=== PATIENT | female | born 1940 | race Caucasian/White ===

== ENCOUNTER 2018-05-28 12:53 | Emergency (ER) | payer MEDICARE, MEDICAID, OTHER ==
[2018-05-28 14:14] LABS: BASO # 0.1 10^3/uL (0.0-0.2); BASO % 0.4 % (0.0-1.0); EOS # 0.3 10^3/uL (0.0-0.50); EOS % 2.1 % (0.0-3.0); HEMATOCRIT 42.2 % (36.0-47.0); HEMOGLOBIN 13.4 g/dl (12.0-15.5); IMMATURE GRANULOCYTE % 0.4 % (0-3.0); LYMPH # 1.8 10^3/uL (1.5-4.5); LYMPH % 15.1 % (24.0-44.0); MEAN CORPUSCULAR HEMOGLOBIN 30.7 pg (27.0-33.0); MEAN CORPUSCULAR HGB CONC 31.8 g/dl (32.0-36.5); MEAN CORPUSCULAR VOLUME 96.6 fl (80.0-96.0); MONO # 0.8 10^3/uL (0.0-0.8); MONO % 6.6 % (0.0-5.0); NEUTROPHILS % 75.4 % (36.0-66.0); PLATELET COUNT, AUTOMATED 361 10^3/uL (150-450); RED BLOOD COUNT 4.37 10^6/uL (4.00-5.40); RED CELL DISTRIBUTION WIDTH 13.5 % (11.5-14.5); WHITE BLOOD COUNT 11.9 10^3/uL (4.0-10.0)
[2018-05-28 14:18] LABS: LACTIC ACID SEPSIS PROTOCOL 1.1 MMOL/L (0.4-2.0)
[2018-05-28 14:20] LABS: ALBUMIN 3.1 GM/DL (3.2-5.2); ALBUMIN/GLOBULIN RATIO 0.67 (1.00-1.93); ALKALINE PHOSPHATASE 116 U/L (45-117); ALT/SGPT 23 U/L (12-78); ANION GAP 7 MEQ/L (8-16); AST/SGOT 17 U/L (7-37); BILIRUBIN,DIRECT 0.2 MG/DL (0.0-0.2); BILIRUBIN,TOTAL 0.7 MG/DL (0.2-1.0); BLOOD UREA NITROGEN 18 MG/DL (7-18); CALCIUM LEVEL 9.1 MG/DL (8.8-10.2); CARBON DIOXIDE LEVEL 27 MEQ/L (21-32); CHLORIDE LEVEL 107 MEQ/L (98-107); CPK CREATINE PHOSPHOKINASE 32 U/L (26-192); CREATININE FOR GFR 0.85 MG/DL (0.55-1.30); GLOMERULAR FILTRATION RATE > 60.0 (>39); GLUCOSE, FASTING 79 MG/DL (70-100); POTASSIUM SERUM 3.8 MEQ/L (3.5-5.1); SODIUM LEVEL 141 MEQ/L (136-145); TOTAL PROTEIN 7.7 GM/DL (6.4-8.2); TROPONIN I < 0.02 NG/ML (< 0.10)
[2018-05-28] MEDS: IPRATROPIUM 0.5MG/ALBUTEROL 2.5MG INH SOL UD 3ML (DUONEB)(J7620) NEB ×2 (14:24→15:36)
[2018-05-28 14:26] LABS: CK-MB VALUE MASS < 1.0 NG/ML (<3.6); MB/CK RELATIVE INDEX 3.12 (< OR =4); NT-PRO BNP 347 PG/ML (<450)
[2018-05-28] MEDS: methylPREDNISolone INJ 125 MG/2 ML VIAL (J2930) IV (15:20)
== END 2018-05-28 16:08 | disposition home or self-care (01) ==
LOC: M ED 12:53
DX: J44.1 Chronic obstructive pulmonary disease with (acute) exacerbation (principal); M06.9 Rheumatoid arthritis, unspecified; I08.9 Rheumatic multiple valve disease, unspecified; Z88.0 Allergy status to penicillin; Z87.891 Personal history of nicotine dependence
CPT/HCPCS: J2930

== ENCOUNTER → 2018-08-08 | Outpatient (CLI) | payer MEDICARE, MEDICAID | LOC: M RAD 13:06 | DX: M51.36 Other intervertebral disc degeneration, lumbar region (principal) | CPT/HCPCS: 72148 ==

== ENCOUNTER → 2018-09-12 | Outpatient (CLI) | payer MEDICARE, MEDICAID | LOC: M LRY 12:11 | DX: M15.0 Primary generalized (osteo)arthritis (principal) | CPT/HCPCS: 73130; 82607 ==

== ENCOUNTER → 2018-09-12 | Outpatient (REF) | payer MEDICARE, MEDICAID ==
[2018-09-12 19:41] LABS: BASO % 0.4 % (0.0-1.0); EOS # 0.3 10^3/uL (0.0-0.50); EOS % 2.8 % (0.0-3.0); HEMATOCRIT 42.1 % (36.0-47.0); HEMOGLOBIN 13.5 g/dl (12.0-15.5); IMMATURE GRANULOCYTE % 0.2 % (0-3.0); LYMPH # 1.4 10^3/uL (1.5-4.5); LYMPH % 16.2 % (24.0-44.0); MEAN CORPUSCULAR HEMOGLOBIN 30.6 pg (27.0-33.0); MEAN CORPUSCULAR HGB CONC 32.1 g/dl (32.0-36.5); MEAN CORPUSCULAR VOLUME 95.5 fl (80.0-96.0); MONO # 0.7 10^3/uL (0.0-0.8); MONO % 7.5 % (0.0-5.0); NEUTROPHILS # 6.5 10^3/uL (1.8-7.7); NEUTROPHILS % 72.9 % (36.0-66.0); PLATELET COUNT, AUTOMATED 305 10^3/uL (150-450); RED BLOOD COUNT 4.41 10^6/uL (4.00-5.40); RED CELL DISTRIBUTION WIDTH 13.4 % (11.5-14.5); WHITE BLOOD COUNT 8.9 10^3/uL (4.0-10.0)
[2018-09-12 20:06] LABS: ALBUMIN 3.6 GM/DL (3.2-5.2); ALBUMIN/GLOBULIN RATIO 1.24 (1.00-1.93); ALKALINE PHOSPHATASE 105 U/L (45-117); ALT/SGPT 18 U/L (12-78); ANION GAP 8 MEQ/L (8-16); AST/SGOT 17 U/L (7-37); BILIRUBIN,TOTAL 0.4 MG/DL (0.2-1.0); BLOOD UREA NITROGEN 17 MG/DL (7-18); C REACTIVE PROTEIN QUANTITATIV 0.66 MG/DL (0.00-0.30); CARBON DIOXIDE LEVEL 30 MEQ/L (21-32); CHLORIDE LEVEL 104 MEQ/L (98-107); CREATININE FOR GFR 0.81 MG/DL (0.55-1.30); GLOMERULAR FILTRATION RATE > 60.0 (>39); GLUCOSE, FASTING 67 MG/DL (70-100); RHEUMATOID FACTOR QUANT < 10.0 IU/ML (<15.0); SODIUM LEVEL 142 MEQ/L (136-145); TOTAL PROTEIN 6.5 GM/DL (6.4-8.2)
[2018-09-12 20:27] LABS: ERYTHROCYTE SEDIMENTATION RATE 9 mm/hr (0-30)
== END ==
LOC: M SFHCLERA 12:09
DX: M06.9 Rheumatoid arthritis, unspecified (principal)
CPT/HCPCS: 82607

== ENCOUNTER → 2018-10-24 | Outpatient (REF) | payer MEDICARE, MEDICAID ==
[~2018-10-24] MED LIST: /FENT75PA; ALEN70TA57 PO; AMLO2.5T2 PO; ASPI81CH32 PO; ATOR1TAB21 PO; AZIT500T2 PO; B-12100T2 PO; CEFD1CAP8; D32000CA PO; FLEXERIL; FOLI1TAB; FOLI800C PO; HYDR-3713; LASI20TA PO; METH2.5T; METH2.5T48 PO; NEUR100C PO; NEUR300C; PAXI40TA; POTA1TAB14 PO; PRED10TA2 PO; PREMPRO; TESS100C PO; TRAZ-163 PO; VENL150C43; VENTAER INH; VICODINES TAB; ZOFR4TAB14 PO; [UNRECOGNIZED DRUG - OTHER]
[2018-10-24 15:44] LABS: BASO % 0.5 % (0.0-1.0); EOS # 0.3 10^3/uL (0.0-0.50); EOS % 3.5 % (0.0-3.0); HEMATOCRIT 40.6 % (36.0-47.0); HEMOGLOBIN 13.1 g/dl (12.0-15.5); LYMPH # 1.3 10^3/uL (1.5-4.5); LYMPH % 15.7 % (24.0-44.0); MEAN CORPUSCULAR HEMOGLOBIN 30.8 pg (27.0-33.0); MEAN CORPUSCULAR HGB CONC 32.3 g/dl (32.0-36.5); MEAN CORPUSCULAR VOLUME 95.3 fl (80.0-96.0); MONO # 0.6 10^3/uL (0.0-0.8); MONO % 7.7 % (0.0-5.0); NEUTROPHILS % 72.1 % (36.0-66.0); PLATELET COUNT, AUTOMATED 319 10^3/uL (150-450); RED BLOOD COUNT 4.26 10^6/uL (4.00-5.40); WHITE BLOOD COUNT 8.3 10^3/uL (4.0-10.0)
[2018-10-24 16:06] LABS: ALBUMIN 3.9 GM/DL (3.2-5.2); ALT/SGPT 18 U/L (12-78); BILIRUBIN,TOTAL 0.5 MG/DL (0.2-1.0); BLOOD UREA NITROGEN 20 MG/DL (7-18); C REACTIVE PROTEIN QUANTITATIV 0.48 MG/DL (0.00-0.30); CALCIUM LEVEL 8.7 MG/DL (8.8-10.2); CARBON DIOXIDE LEVEL 28 MEQ/L (21-32); CHLORIDE LEVEL 106 MEQ/L (98-107); CREATININE FOR GFR 0.75 MG/DL (0.55-1.30); GLOMERULAR FILTRATION RATE > 60.0 (>39); GLUCOSE, FASTING 76 MG/DL (70-100); POTASSIUM SERUM 3.9 MEQ/L (3.5-5.1); SODIUM LEVEL 141 MEQ/L (136-145); TOTAL PROTEIN 6.9 GM/DL (6.4-8.2)
[2018-10-24 16:10] LABS: ERYTHROCYTE SEDIMENTATION RATE 17 mm/hr (0-30)
== END ==
LOC: M SFHCPLAZ 14:39
PROVIDERS: ATTEND Internal Medicine Rheumatology
DX: M06.9 Rheumatoid arthritis, unspecified (principal)
CPT/HCPCS: 36415; 80053; 85025; 85652; 86140; G0463

== ENCOUNTER → 2018-12-23 | Outpatient (REF) | payer MEDICARE, MEDICAID ==
[~2018-12-23] MED LIST changes: -AMLO2.5T2 PO; +AMLO2.5T3 PO; -LASI20TA PO; +LASI20TA3 PO
[2018-12-23 19:58] LABS: BASO # 0.1 10^3/uL (0.0-0.2); BASO % 0.6 % (0.0-1.0); EOS # 0.2 10^3/uL (0.0-0.50); EOS % 2.9 % (0.0-3.0); HEMATOCRIT 37.9 % (36.0-47.0); HEMOGLOBIN 11.9 g/dl (12.0-15.5); LYMPH # 1.4 10^3/uL (1.5-4.5); LYMPH % 17.5 % (24.0-44.0); MEAN CORPUSCULAR HEMOGLOBIN 31.2 pg (27.0-33.0); MEAN CORPUSCULAR HGB CONC 31.4 g/dl (32.0-36.5); MEAN CORPUSCULAR VOLUME 99.5 fl (80.0-96.0); MONO # 0.6 10^3/uL (0.0-0.8); MONO % 7.4 % (0.0-5.0); NEUTROPHILS # 5.8 10^3/uL (1.8-7.7); NEUTROPHILS % 71.4 % (36.0-66.0); PLATELET COUNT, AUTOMATED 308 10^3/uL (150-450); RED BLOOD COUNT 3.81 10^6/uL (4.00-5.40); WHITE BLOOD COUNT 8.2 10^3/uL (4.0-10.0)
[2018-12-23 20:01] LABS: ALBUMIN 3.7 GM/DL (3.2-5.2); ALT/SGPT 15 U/L (12-78); BILIRUBIN,TOTAL 0.4 MG/DL (0.2-1.0); BLOOD UREA NITROGEN 25 MG/DL (7-18); C REACTIVE PROTEIN QUANTITATIV < 0.30 MG/DL (0.00-0.30); CALCIUM LEVEL 8.9 MG/DL (8.8-10.2); CARBON DIOXIDE LEVEL 32 MEQ/L (21-32); CHLORIDE LEVEL 106 MEQ/L (98-107); GLOMERULAR FILTRATION RATE > 60.0 (>39); GLUCOSE, FASTING 64 MG/DL (70-100); POTASSIUM SERUM 4.2 MEQ/L (3.5-5.1); SODIUM LEVEL 141 MEQ/L (136-145); TOTAL PROTEIN 6.3 GM/DL (6.4-8.2)
[2018-12-23 20:29] LABS: ERYTHROCYTE SEDIMENTATION RATE 13 mm/hr (0-30)
[2018-12-25 08:59] LABS: HEPATITIS B SURFACE ANTIBODY NEGATIVE (POSITIVE)
[2018-12-25 09:10] LABS: HEPATITIS B SURFACE ANTIGEN NEGATIVE (NEGATIVE)
== END ==
LOC: M SFHCPLAZ 14:38
PROVIDERS: ATTEND Internal Medicine Rheumatology
DX: M06.9 Rheumatoid arthritis, unspecified (principal); M15.0 Primary generalized (osteo)arthritis; M81.0 Age-related osteoporosis without current pathological fracture; Z79.899 Other long term (current) drug therapy
CPT/HCPCS: 36415; 80053; 85025; 85652; 86140; 86480; 86704; 86706; 86803; 87340; G0463

== ENCOUNTER → 2020-06-01 | Outpatient (CLI) | payer MEDICARE, MEDICAID ==
[~2020-06-01] MED LIST changes: -/FENT75PA; -ALEN70TA57 PO; +ALEN70TA74 PO; -ASPI81CH32 PO; +ASPI81CH33 PO; -AZIT500T2 PO; +AZIT500T5 PO; +FENT1DIS16; -TRAZ-163 PO; +TRAZ-257 PO
--- NOTE | 2020-06-01 15:09 | REP ---
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 COMPARISONS: Comparison CT study of the chest are the radiology imaging January 22, 2019. TECHNIQUE: 50 minutes following the intravenous injection of a 8.4 mCi dose of F-18 FDG, three-dimensional PET scintigraphy is acquired from the skull base to the proximal thighs. Triplanar noncontrast CT scanning is acquired through the same anatomic range for attenuation correction, and image registration with scan parameters optimized to minimize radiation exposure to the patient. PET scintigraphy and CT datasets were fused and displayed on a workstation with multiplanar and projection display capability. PET/CT FINDINGS: There is no observable pulmonary parenchymal nodule or mass. 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 No abnormal hilar or mediastinal hypermetabolic activity is seen. Head and neck soft tissues are unremarkable. No abnormal hypermetabolic uptake in the abdomen or pelvis. There is a vertically oriented area of minimally increased uptake in the left sacrum consistent with healing sacral insufficiency fracture. Accompanying CT study shows some associated linear sclerosis. Incidental morphologic findings include bilateral breast augmentation implants and fairly prominent vascular calcification. IMPRESSION: No abnormal hypermetabolic uptake advanced COPD pulmonary fibrosis pattern. Findings consistent with healing sacral insufficiency fracture on the left. Electronically Signed by Frederick Owen MD 06/01/2020 03:18 P
== END ==
LOC: M PLARAD 09:56
PROVIDERS: ATTEND Nurse Practitioner Family
DX: J44.9 Chronic obstructive pulmonary disease, unspecified (principal); J84.10 Pulmonary fibrosis, unspecified; Z98.82 Breast implant status; Z79.899 Other long term (current) drug therapy; R91.8 Other nonspecific abnormal finding of lung field
CPT/HCPCS: 78815; A9552

== ENCOUNTER → 2021-03-18 | Outpatient (REF) | payer OTHER, MEDICAID ==
[~2021-03-18] MED LIST changes: -ALEN70TA74 PO; +ALEN70TA82 PO
[2021-03-18 16:45] LABS: BASO # 0.1 10^3/uL (0.0-0.2); BASO % 0.8 % (0.0-1.0); EOS # 0.3 10^3/uL (0.0-0.5); EOS % 2.8 % (0.0-3.0); HEMATOCRIT 49.1 % (36.0-47.0); HEMOGLOBIN 15.3 g/dl (12.0-15.5); LYMPH # 1.2 10^3/uL (1.5-5.0); LYMPH % 13.8 % (24.0-44.0); MEAN CORPUSCULAR HEMOGLOBIN 30.8 pg (27.0-33.0); MEAN CORPUSCULAR HGB CONC 31.2 g/dl (32.0-36.5); MEAN CORPUSCULAR VOLUME 98.8 fl (80.0-96.0); MONO # 0.9 10^3/uL (0.0-0.8); MONO % 9.9 % (2.0-8.0); NEUTROPHILS # 6.5 10^3/uL (1.5-8.5); NEUTROPHILS % 72.4 % (36.0-66.0); PLATELET COUNT, AUTOMATED 342 10^3/uL (150-450); RED BLOOD COUNT 4.97 10^6/uL (4.00-5.40)
[2021-03-18 17:10] LABS: ALBUMIN 4.1 GM/DL (3.2-5.2); ALT/SGPT 23 U/L (12-78); BILIRUBIN,DIRECT 0.2 MG/DL (0.0-0.2); BILIRUBIN,TOTAL 0.6 MG/DL (0.2-1.0); BLOOD UREA NITROGEN 21 MG/DL (7-18); C REACTIVE PROTEIN QUANTITATIV 0.93 MG/DL (0.00-0.30); CALCIUM LEVEL 9.6 MG/DL (8.8-10.2); CARBON DIOXIDE LEVEL 30 MEQ/L (21-32); CHLORIDE LEVEL 105 MEQ/L (98-107); CREATININE FOR GFR 0.88 MG/DL (0.55-1.30); GLOMERULAR FILTRATION RATE > 60.0 (>39); GLUCOSE, FASTING 80 MG/DL (70-100); IMMUNOGLOBULIN G 887 MG/DL (681-1648); IMMUNOGLOBULIN M 92.3 MG/DL (40-230); MAGNESIUM LEVEL 2.1 MG/DL (1.8-2.4); PHOSPHORUS LEVEL 3.4 MG/DL (2.5-4.9); POTASSIUM SERUM 3.6 MEQ/L (3.5-5.1); RHEUMATOID FACTOR QUANT 10.6 IU/ML (<15.0); SODIUM LEVEL 141 MEQ/L (136-145); TOTAL 25(OH) VITAMIN D 43.5 NG/ML (30.0-100.0); TOTAL PROTEIN 7.6 GM/DL (6.4-8.2)
[2021-03-18 18:31] LABS: ERYTHROCYTE SEDIMENTATION RATE 5 mm/hr (0-30)
[2021-03-21 13:57] LABS: ALBUMIN 4.39 GM/DL (3.29-5.55); ALBUMIN % 57.8 % (55.8-66.1); ALPHA-1-GLOBULIN % 4.9 % (2.9-4.9); ALPHA-1-GLOBULINS 0.37 GM/DL (0.17-0.41); ALPHA-2-GLOBULINS 1.09 GM/DL (0.42-0.99); ALPHA-2-GLOBULINS % 14.4 % (7.1-11.8); BETA-1-GLOBULINS 0.45 GM/DL (0.28-0.60); BETA-1-GLOBULINS % 5.9 % (4.7-7.2); BETA-2-GLOBULINS 0.45 GM/DL (0.19-0.55); BETA-2-GLOBULINS % 5.9 % (3.2-6.5); GAMMA GLOBULIN % 11.1 % (11.1-18.8); GAMMA GLOBULINS 0.84 GM/DL (0.65-1.58)
[2021-03-22 00:10] LABS: G6PD2 5.07 x10E6/uL (3.77-5.28)
== END ==
LOC: M SFHCRHEU 12:11
PROVIDERS: ATTEND Internal Medicine
DX: M06.09 Rheumatoid arthritis without rheumatoid factor, multiple sites (principal); M81.0 Age-related osteoporosis without current pathological fracture
CPT/HCPCS: 80048; 80076; 82306; 82784; 82955; 83735; 84100; 84165; 85025; 85652; 86140; 86200; 86431; G0463

== ENCOUNTER 2021-08-04 16:34 | Emergency (ER) | payer OTHER, MEDICAID ==
[~2021-08-04] VITALS: Ht 165.1 cm; Wt 50.9 kg
--- NOTE | 2021-08-04 17:41 | REP ---
INDICATION: DYSPNEA/COUGH. COMPARISON: 01/13/2019. TECHNIQUE: Single portable AP view of the chest was performed. FINDINGS: Bilateral fibrotic changes appear stable. There is no definite superimposed acute infiltrate. The heart is normal in size. There is calcification of the thoracic aorta. The mediastinal silhouette is unchanged. Metallic hardware is seen in the cervical spine. IMPRESSION: No definite acute infiltrate. Significant chronic fibrosis. <Electronically signed by Edmar Burnett > 08/04/21 [id number]
[2021-08-04 17:57] LABS: BASO % 0.3 % (0.0-1.0); EOS # 0.1 10^3/uL (0.0-0.5); EOS % 0.7 % (0.0-3.0); HEMATOCRIT 44.3 % (36.0-47.0); HEMOGLOBIN 14.1 g/dl (12.0-15.5); LYMPH % 8.1 % (24.0-44.0); MEAN CORPUSCULAR HEMOGLOBIN 30.8 pg (27.0-33.0); MEAN CORPUSCULAR HGB CONC 31.8 g/dl (32.0-36.5); MEAN CORPUSCULAR VOLUME 96.7 fl (80.0-96.0); MONO % 7.8 % (2.0-8.0); NEUTROPHILS # 10.4 10^3/uL (1.5-8.5); NEUTROPHILS % 82.7 % (36.0-66.0); PLATELET COUNT, AUTOMATED 254 10^3/uL (150-450); RED BLOOD COUNT 4.58 10^6/uL (4.00-5.40); WHITE BLOOD COUNT 12.5 10^3/uL (4.0-10.0)
[2021-08-04 18:20] LABS: ALBUMIN 3.1 GM/DL (3.2-5.2); ALT/SGPT 13 U/L (12-78); BILIRUBIN,DIRECT 0.3 MG/DL (0.0-0.2); BILIRUBIN,TOTAL 0.8 MG/DL (0.2-1.0); BLOOD UREA NITROGEN 16 MG/DL (7-18); CALCIUM LEVEL 8.7 MG/DL (8.8-10.2); CARBON DIOXIDE LEVEL 28 MEQ/L (21-32); CHLORIDE LEVEL 108 MEQ/L (98-107); CK-MB VALUE MASS < 1.0 NG/ML (<3.6); CPK CREATINE PHOSPHOKINASE 51 U/L (26-192); CREATININE FOR GFR 0.88 MG/DL (0.55-1.30); GLOMERULAR FILTRATION RATE > 60.0 (>39); GLUCOSE, FASTING 107 MG/DL (70-100); MB/CK RELATIVE INDEX 1.96 (< OR =4); NT-PRO BNP 343 PG/ML (<450); POTASSIUM SERUM 3.6 MEQ/L (3.5-5.1); SODIUM LEVEL 142 MEQ/L (136-145); THYROID STIMULATING HORMONE 0.685 uIU/ML (0.358-3.740); TOTAL PROTEIN 6.4 GM/DL (6.4-8.2); TROPONIN I 0.02 NG/ML (< 0.10)
[2021-08-04] MEDS ORDERED: ACETAMINOPHEN TAB 650MG DOSE (2X325MG) PO ONE (19:05)
[2021-08-04] MEDS ORDERED: methylPREDNISolone 125MG 2ML VIAL IV ONE (19:35)
[2021-08-04] MEDS ORDERED: LevoFLOXacin IV 750 MG in IV 1 EA IV ONE (19:35)
[2021-08-04] MEDS ORDERED: IPRATROPIUM 0.5MG/ALBUTEROL 2.5MG INH SOL UD 3ML (DUONEB) NEB ONE (19:50)
[2021-08-04 19:53] VITALS: BP 133/94
[2021-08-04] MEDS ORDERED: LEVO750T13 PO (20:45)
[2021-08-04] MEDS ORDERED: IPRA0.00 NEB (21:09)
[2021-08-04] MEDS ORDERED: PRED20TA PO (21:11)
--- NOTE | 2021-08-05 00:31 | ECGEPIP ---
[facility] - ED Test Date: 2021-08-04 Pat Name: JOSEP BOND Department: Room: - Gender: Female Chief Jailer: ALEXANDRA : 1940 Requested By: DESMOND Beyer Order Number: [id number] Reading MD: Hilario Osborne Measurements Intervals [place] Rate: 88 P: 71 AL: 130 QRS: 44 QRSD: 70 T: 76 QT: 450 QTc: 544 Interpretive Statements Sinus rhythm with supraventricular premature contractions INCOMPLETE RIGHT BUNDLE BRANCH BLOCK ECTOPY NEW COMPARED TO 11/12/18 Electronically Signed on 08-05-2021 0:31:18 EDT by Hilario Osborne
== END 2021-08-04 22:38 | disposition home or self-care (01) ==
LOC: M ED 16:34 → EDSEX 16:34 → EDBD 16:34 → M ED 22:38
DX: I45.19 Other right bundle-branch block (principal); J18.9 Pneumonia, unspecified organism; J44.9 Chronic obstructive pulmonary disease, unspecified; C34.90 Malignant neoplasm of unspecified part of unspecified bronchus or lung; I50.9 Heart failure, unspecified; I10 Essential (primary) hypertension; E78.5 Hyperlipidemia, unspecified; F32.9 Major depressive disorder, single episode, unspecified; M06.9 Rheumatoid arthritis, unspecified; M81.0 Age-related osteoporosis without current pathological fracture; Z79.82 Long term (current) use of aspirin; Z79.899 Other long term (current) drug therapy; Z88.1 Allergy status to other antibiotic agents; Z88.8 Allergy status to other drugs, medicaments and biological substances; Z91.040 Latex allergy status; Z88.6 Allergy status to analgesic agent; Z88.0 Allergy status to penicillin
CPT/HCPCS: 71045; 80048; 80076; 82550; 82553; 83605; 83880; 84443; 84484; 85025; 87040; 87798; 93005; 94640; 94760; 96365; 96375; 99284; J1956; J2930

== ENCOUNTER 2022-02-14 15:48 | Inpatient (IN) | payer OTHER, MEDICAID ==
[~2022-02-14] VITALS: Ht 165.1 cm; Wt 49.0 kg
[~2022-02-14 15:48] MED LIST changes: -CEFD1CAP8; +CEFD300C41; +IPRA0.00 NEB; +LEVO750T13 PO; +PRED20TA PO
[2022-02-14] MEDS ORDERED: NS 1,000 ML IV SCH (16:35)
[2022-02-14 17:19] LABS: BASO % 0.3 % (0.0-1.0); EOS # 0.1 10^3/uL (0.0-0.5); EOS % 0.6 % (0.0-3.0); HEMATOCRIT 40.1 % (36.0-47.0); HEMOGLOBIN 13.5 g/dl (12.0-15.5); LYMPH # 1.5 10^3/uL (1.5-5.0); LYMPH % 17.3 % (24.0-44.0); MEAN CORPUSCULAR HEMOGLOBIN 31.7 pg (27.0-33.0); MEAN CORPUSCULAR HGB CONC 33.7 g/dl (32.0-36.5); MEAN CORPUSCULAR VOLUME 94.1 fl (80.0-96.0); MONO # 1.2 10^3/uL (0.0-0.8); MONO % 13.6 % (2.0-8.0); NEUTROPHILS % 67.9 % (36.0-66.0); PLATELET COUNT, AUTOMATED 207 10^3/uL (150-450); RED BLOOD COUNT 4.26 10^6/uL (4.00-5.40); WHITE BLOOD COUNT 8.8 10^3/uL (4.0-10.0)
[2022-02-14] MEDS ORDERED: dexameTHASONE 4 MG/ML 1ML VIAL (J1100 PER 1MG) IV ONE (17:40)
[2022-02-14 17:56] LABS: ALBUMIN 3.2 GM/DL (3.2-5.2); ALT/SGPT 23 U/L (12-78); BILIRUBIN,DIRECT 0.3 MG/DL (0.0-0.2); BILIRUBIN,TOTAL 0.6 MG/DL (0.2-1.0); BLOOD UREA NITROGEN 22 MG/DL (7-18); CALCIUM LEVEL 9.1 MG/DL (8.8-10.2); CARBON DIOXIDE LEVEL 27 MEQ/L (21-32); CHLORIDE LEVEL 110 MEQ/L (98-107); CREATININE FOR GFR 0.94 MG/DL (0.55-1.30); GLOMERULAR FILTRATION RATE > 60.0 (>32); GLUCOSE, FASTING 81 MG/DL (70-100); NT-PRO BNP 238 PG/ML (<450); POTASSIUM SERUM 3.4 MEQ/L (3.5-5.1); SODIUM LEVEL 143 MEQ/L (136-145); THYROID STIMULATING HORMONE 0.381 uIU/ML (0.358-3.740); THYROXINE (T4) 10.6 UG/DL (4.5-12.0)
[2022-02-14] MEDS ORDERED: BENZONATATE 100MG CAPSULE PO PRN (18:25)
[2022-02-14] MEDS ORDERED: ALBUTEROL SULFATE 2.5 MG/0.5 ML INH NEB SOLN NEB PRN (18:25)
[2022-02-14] MEDS ORDERED: guaiFENesin ER 600 MG TAB PO PRN (18:25)
[2022-02-14 18:37] LABS: ABG HCO3 20.9 MEQ/L (22.0-26.0); ABG O2 SATURATION 94.8 % (95.0-99.0); ABG PARTIAL PRESSURE CO2 33.8 mmHg (35.0-45.0); ABG PARTIAL PRESSURE O2 72.1 mmHg (75.0-100.0); ABG STANDARD HCO3 21.9 MEQ/L (22.0-26.0); ABG TOTAL CO2 21.9 MEQ/L (23.0-31.0); ABG pH (ARTERIAL) 7.409 UNITS (7.350-7.450)
[2022-02-14] MEDS ORDERED: POTASSIUM CHLORIDE 10MEQ SR TABLET PO ONE (18:40)
[2022-02-14] MEDS ORDERED: APAP500T10 PO (18:49)
[2022-02-14] MEDS ORDERED: FAMO20TA PO (18:49)
[2022-02-14] MEDS ORDERED: AMLO1TAB24 PO (18:49)
[2022-02-14] MEDS ORDERED: IPRA0.00 NEB (18:49)
[2022-02-14] MEDS ORDERED: DULO1CAP4 PO (18:49)
[2022-02-14] MEDS ORDERED: HOME MED LIST COMPLETE! XX SCH (18:50)
[2022-02-14] MEDS: COMBIVENT RESPIMAT 100-20MCG INHALER 4GM INH SCH (20:19)
[2022-02-14 20:40] VITALS: BP 150/70
[2022-02-14] MEDS ORDERED: FAMOTIDINE 20 MG TAB PO PRN (21:15)
[2022-02-14 22:02] LABS: APPEARANCE, URINE CLEAR (CLEAR); BACTERIA, URINE AUTO 1+ (NEGATIVE); BILIRUBIN, URINE AUTO NEGATIVE (NEGATIVE); BLOOD, URINE BLOOD NEGATIVE (NEGATIVE); COLOR, URINE YELLOW (YELLOW); GLUCOSE, URINE (UA) AUTO NEGATIVE (NEGATIVE); KETONE, URINE AUTO 1+ mg/dL (NEGATIVE); LEUKOCYTE ESTERASE, URINE AUTO TRACE (NEGATIVE); MUCUS, URINE SMALL (NEGATIVE); NITRITE, URINE AUTO NEGATIVE (NEGATIVE); PROTEIN, URINE AUTO NEGATIVE (NEGATIVE); RBC, URINE AUTO 1 /HPF (0-3); SPECIFIC GRAVITY URINE AUTO 1.015 (1.002-1.035); SQUAMOUS EPITHELIAL CELL UR AU 1 /HPF (0-6); WBC, URINE AUTO 4 /HPF (0-3)
[2022-02-14 22:03] VITALS: O2SAT 93
[2022-02-14] MEDS: traZODone 100 MG TAB PO SCH (22:25)
[2022-02-14] MEDS ORDERED: REMDESIVIR 200 MG in NS 250 ML IV ONE (23:00)
[2022-02-15] MEDS: COMBIVENT RESPIMAT 100-20MCG INHALER 4GM INH SCH ×4 (01:00→20:29)
[2022-02-15] MEDS ORDERED: SODIUM CHLORIDE 0.9% INJ 10 ML SYR IV ONE (01:00)
[2022-02-15 02:21] VITALS: O2SAT 94
[2022-02-15 04:19] VITALS: O2SAT 95
[2022-02-15 06:13] VITALS: BP 107/60
[2022-02-15 08:35] LABS: HEMOGLOBIN 13.4 g/dl (12.0-15.5); LYMPH # 0.7 10^3/uL (1.5-5.0); LYMPH % 12.8 % (24.0-44.0); MEAN CORPUSCULAR HEMOGLOBIN 31.2 pg (27.0-33.0); MEAN CORPUSCULAR HGB CONC 32.7 g/dl (32.0-36.5); MEAN CORPUSCULAR VOLUME 95.3 fl (80.0-96.0); MONO # 0.3 10^3/uL (0.0-0.8); MONO % 5.6 % (2.0-8.0); NEUTROPHILS # 4.4 10^3/uL (1.5-8.5); NEUTROPHILS % 81.2 % (36.0-66.0); PLATELET COUNT, AUTOMATED 218 10^3/uL (150-450); WHITE BLOOD COUNT 5.4 10^3/uL (4.0-10.0)
[2022-02-15] MEDS: ENOXAPARIN 40MG/0.4ML SYRINGE (J1650 PER 10MG) SC SCH (08:36)
[2022-02-15] MEDS: DULoxetine 20 MG CAP (CYMBALTA) PO SCH (08:36)
[2022-02-15] MEDS: ATORVASTATIN 20 MG TAB PO SCH (08:37)
[2022-02-15] MEDS: amLODIPine 5 MG TAB PO SCH (08:39)
[2022-02-15 09:08] LABS: ALT/SGPT 25 U/L (12-78); BILIRUBIN,DIRECT 0.2 MG/DL (0.0-0.2); BILIRUBIN,TOTAL 0.4 MG/DL (0.2-1.0); BLOOD UREA NITROGEN 19 MG/DL (7-18); CALCIUM LEVEL 8.6 MG/DL (8.8-10.2); CARBON DIOXIDE LEVEL 27 MEQ/L (21-32); CHLORIDE LEVEL 113 MEQ/L (98-107); CREATININE FOR GFR 0.75 MG/DL (0.55-1.30); GLOMERULAR FILTRATION RATE > 60.0 (>32); GLUCOSE, FASTING 131 MG/DL (70-100); MAGNESIUM LEVEL 1.8 MG/DL (1.8-2.4); POTASSIUM SERUM 4.2 MEQ/L (3.5-5.1); SODIUM LEVEL 144 MEQ/L (136-145); TOTAL PROTEIN 5.9 GM/DL (6.4-8.2)
[2022-02-15] MEDS: dexameTHASONE 4 MG/ML 1ML VIAL (J1100 PER 1MG) IV SCH (11:10)
[2022-02-15 11:30] VITALS: O2SAT 94
[2022-02-15 14:00] VITALS: BP 125/59
[2022-02-15] MEDS ORDERED: traZODone 100 MG TAB PO SCH (21:00)
[2022-02-15 21:49] VITALS: BP 131/62
[2022-02-15] MEDS: SODIUM CHLORIDE 0.9% INJ 10 ML SYR IV SCH (21:53)
[2022-02-15] MEDS: REMDESIVIR 100 MG in NS 250 ML IV SCH (21:53)
[2022-02-15] MEDS: traZODone 100 MG TAB PO SCH (21:53)
[2022-02-16] MEDS: COMBIVENT RESPIMAT 100-20MCG INHALER 4GM INH SCH ×4 (02:00→19:39)
[2022-02-16 04:16] VITALS: BP 156/70
[2022-02-16 07:35] LABS: BASO % 0.1 % (0.0-1.0); HEMOGLOBIN 12.4 g/dl (12.0-15.5); LYMPH # 0.9 10^3/uL (1.5-5.0); LYMPH % 9.9 % (24.0-44.0); MEAN CORPUSCULAR HEMOGLOBIN 31.2 pg (27.0-33.0); MEAN CORPUSCULAR HGB CONC 32.6 g/dl (32.0-36.5); MEAN CORPUSCULAR VOLUME 95.7 fl (80.0-96.0); MONO # 0.7 10^3/uL (0.0-0.8); MONO % 7.7 % (2.0-8.0); NEUTROPHILS # 7.4 10^3/uL (1.5-8.5); NEUTROPHILS % 81.7 % (36.0-66.0); PLATELET COUNT, AUTOMATED 211 10^3/uL (150-450); RED BLOOD COUNT 3.97 10^6/uL (4.00-5.40); WHITE BLOOD COUNT 9.1 10^3/uL (4.0-10.0)
[2022-02-16 07:51] LABS: INR 1.04
[2022-02-16 07:56] LABS: ALBUMIN 2.7 GM/DL (3.2-5.2); ALT/SGPT 21 U/L (12-78); BILIRUBIN,DIRECT 0.1 MG/DL (0.0-0.2); BILIRUBIN,TOTAL 0.2 MG/DL (0.2-1.0); BLOOD UREA NITROGEN 22 MG/DL (7-18); CALCIUM LEVEL 8.3 MG/DL (8.8-10.2); CARBON DIOXIDE LEVEL 26 MEQ/L (21-32); CHLORIDE LEVEL 115 MEQ/L (98-107); CREATININE FOR GFR 0.73 MG/DL (0.55-1.30); FERRITIN 220 NG/ML (8-252); GLOMERULAR FILTRATION RATE > 60.0 (>32); GLUCOSE, FASTING 101 MG/DL (70-100); LDH LACTATE DEHYDROGENASE 162 U/L (84-246); MAGNESIUM LEVEL 1.8 MG/DL (1.8-2.4); NT-PRO BNP 1045 PG/ML (<450); POTASSIUM SERUM 3.9 MEQ/L (3.5-5.1); SODIUM LEVEL 146 MEQ/L (136-145); TOTAL PROTEIN 5.7 GM/DL (6.4-8.2)
[2022-02-16] MEDS ORDERED: ceFAZolin SOD 1 GM in D5W MINI-BAG PLUS 50 ML IV SCH (08:00)
[2022-02-16] MEDS: dexameTHASONE 4 MG/ML 1ML VIAL (J1100 PER 1MG) IV SCH (09:16)
[2022-02-16] MEDS: DULoxetine 20 MG CAP (CYMBALTA) PO SCH (09:16)
[2022-02-16] MEDS: ATORVASTATIN 20 MG TAB PO SCH (09:17)
[2022-02-16] MEDS: ENOXAPARIN 40MG/0.4ML SYRINGE (J1650 PER 10MG) SC SCH (09:20)
[2022-02-16] MEDS: amLODIPine 5 MG TAB PO SCH (09:20)
[2022-02-16 14:00] VITALS: BP 132/63
[2022-02-16 19:44] VITALS: BP 141/69
[2022-02-16 20:19] VITALS: O2SAT 95
[2022-02-16] MEDS ORDERED: CALCIUM CARBONATE 500 MG CHEW U/D PO PRN (21:05)
[2022-02-16] MEDS: traZODone 100 MG TAB PO SCH (22:29)
[2022-02-16] MEDS: REMDESIVIR 100 MG in NS 250 ML IV SCH (22:29)
[2022-02-16] MEDS: SODIUM CHLORIDE 0.9% INJ 10 ML SYR IV SCH (22:29)
[2022-02-17] MEDS: COMBIVENT RESPIMAT 100-20MCG INHALER 4GM INH SCH ×2 (02:00→07:34)
[2022-02-17 03:39] VITALS: O2SAT 95
[2022-02-17 05:21] VITALS: BP 138/66
[2022-02-17 08:31] LABS: BASO % 0.1 % (0.0-1.0); HEMATOCRIT 38.8 % (36.0-47.0); HEMOGLOBIN 12.9 g/dl (12.0-15.5); LYMPH # 1.2 10^3/uL (1.5-5.0); LYMPH % 12.8 % (24.0-44.0); MEAN CORPUSCULAR HEMOGLOBIN 31.3 pg (27.0-33.0); MEAN CORPUSCULAR HGB CONC 33.2 g/dl (32.0-36.5); MEAN CORPUSCULAR VOLUME 94.2 fl (80.0-96.0); MONO # 0.7 10^3/uL (0.0-0.8); MONO % 7.4 % (2.0-8.0); NEUTROPHILS # 7.5 10^3/uL (1.5-8.5); NEUTROPHILS % 78.9 % (36.0-66.0); PLATELET COUNT, AUTOMATED 250 10^3/uL (150-450); RED BLOOD COUNT 4.12 10^6/uL (4.00-5.40); WHITE BLOOD COUNT 9.5 10^3/uL (4.0-10.0)
[2022-02-17] MEDS: ENOXAPARIN 40MG/0.4ML SYRINGE (J1650 PER 10MG) SC SCH (09:00)
[2022-02-17] MEDS: dexameTHASONE 4 MG/ML 1ML VIAL (J1100 PER 1MG) IV SCH (09:00)
[2022-02-17 09:06] LABS: BLOOD UREA NITROGEN 24 MG/DL (7-18); CALCIUM LEVEL 8.3 MG/DL (8.8-10.2); CARBON DIOXIDE LEVEL 28 MEQ/L (21-32); CHLORIDE LEVEL 110 MEQ/L (98-107); CREATININE FOR GFR 0.74 MG/DL (0.55-1.30); GLOMERULAR FILTRATION RATE > 60.0 (>32); GLUCOSE, FASTING 85 MG/DL (70-100); MAGNESIUM LEVEL 1.7 MG/DL (1.8-2.4); POTASSIUM SERUM 3.7 MEQ/L (3.5-5.1); SODIUM LEVEL 143 MEQ/L (136-145)
[2022-02-17 09:40] VITALS: BP 138/66
[2022-02-17] MEDS: amLODIPine 5 MG TAB PO SCH (09:40)
[2022-02-17] MEDS: ATORVASTATIN 20 MG TAB PO SCH (09:40)
[2022-02-17] MEDS: DULoxetine 20 MG CAP (CYMBALTA) PO SCH (09:41)
== END 2022-02-17 12:10 | disposition home health service (06) | DRG 178 ==
LOC: EDBD 15:48 → M ED 15:48 → M ED INP 15:49 → ENRESERV 19:13 → M 4MAIN 20:32 → M MS5PR 02-16 15:00 → OBSVTOIN 02-17 09:50
PROVIDERS: ADMIT Family Medicine; ATTEND Family Medicine
PROC: XW033E5 Introduction of Remdesivir Anti-infective into Peripheral Vein, Percutaneous Approach, New Technology Group 5 (ICD-10-PCS; principal; 2022-02-14)
PROC: 3E0333Z Introduction of Anti-inflammatory into Peripheral Vein, Percutaneous Approach (ICD-10-PCS; 2022-02-14)
DX: U07.1 COVID-19 (principal); J44.1 Chronic obstructive pulmonary disease with (acute) exacerbation; E87.0 Hyperosmolality and hypernatremia; I10 Essential (primary) hypertension; E78.5 Hyperlipidemia, unspecified; K21.9 Gastro-esophageal reflux disease without esophagitis; M54.9 Dorsalgia, unspecified; F32.A Depression, unspecified; M81.0 Age-related osteoporosis without current pathological fracture; Z66 Do not resuscitate; Z88.0 Allergy status to penicillin; Z88.1 Allergy status to other antibiotic agents; Z91.040 Latex allergy status; Z92.3 Personal history of irradiation; Z88.8 Allergy status to other drugs, medicaments and biological substances; Z88.6 Allergy status to analgesic agent; Z85.118 Personal history of other malignant neoplasm of bronchus and lung; Z90.49 Acquired absence of other specified parts of digestive tract; Z79.899 Other long term (current) drug therapy; Z87.891 Personal history of nicotine dependence

== ENCOUNTER 2022-03-14 12:58 | Inpatient (IN) | payer OTHER, MEDICAID ==
[~2022-03-14] VITALS: Ht 165.1 cm; Wt 47.2 kg
[~2022-03-14 12:58] MED LIST changes: +AMLO1TAB24 PO; +APAP500T10 PO; +DULO1CAP4 PO; +FAMO20TA PO
[2022-03-14 14:52] LABS: BASO % 0.3 % (0.0-1.0); EOS % 0.3 % (0.0-3.0); LYMPH # 0.6 10^3/uL (1.5-5.0); LYMPH % 10.3 % (24.0-44.0); MEAN CORPUSCULAR HEMOGLOBIN 31.6 pg (27.0-33.0); MEAN CORPUSCULAR HGB CONC 32.5 g/dl (32.0-36.5); MEAN CORPUSCULAR VOLUME 97.1 fl (80.0-96.0); MONO # 0.3 10^3/uL (0.0-0.8); MONO % 5.5 % (2.0-8.0); NEUTROPHILS # 5.2 10^3/uL (1.5-8.5); NEUTROPHILS % 83.1 % (36.0-66.0); PLATELET COUNT, AUTOMATED 312 10^3/uL (150-450); RED BLOOD COUNT 4.12 10^6/uL (4.00-5.40); WHITE BLOOD COUNT 6.2 10^3/uL (4.0-10.0)
[2022-03-14 15:21] LABS: ALBUMIN 3.3 GM/DL (3.2-5.2); ALT/SGPT 15 U/L (12-78); AMYLASE 53 U/L (25-115); BILIRUBIN,DIRECT 0.2 MG/DL (0.0-0.2); BILIRUBIN,TOTAL 0.7 MG/DL (0.2-1.0); BLOOD UREA NITROGEN 24 MG/DL (7-18); CALCIUM LEVEL 9.3 MG/DL (8.8-10.2); CARBON DIOXIDE LEVEL 28 MEQ/L (21-32); CHLORIDE LEVEL 104 MEQ/L (98-107); CK-MB VALUE MASS < 1.0 NG/ML (<3.6); CPK CREATINE PHOSPHOKINASE 37 U/L (26-192); CREATININE FOR GFR 0.81 MG/DL (0.55-1.30); GLOMERULAR FILTRATION RATE > 60.0 (>32); GLUCOSE, FASTING 82 MG/DL (70-100); LIPASE 92 U/L (73-393); POTASSIUM SERUM 3.7 MEQ/L (3.5-5.1); SODIUM LEVEL 140 MEQ/L (136-145); TOTAL PROTEIN 6.1 GM/DL (6.4-8.2)
[2022-03-14] MEDS ORDERED: ISOVUE-370 76% 100ML VIAL As Ordered ONE (16:10)
[2022-03-14] MEDS ORDERED: ACETAMINOPHEN TAB 650MG DOSE (2X325MG) PO PRN (18:35)
[2022-03-14] MEDS ORDERED: IPRATROPIUM 0.5MG/ALBUTEROL 2.5MG INH SOL UD 3ML (DUONEB) NEB PRN (18:45)
[2022-03-14] MEDS ORDERED: VITA500T40 PO (20:41)
[2022-03-14] MEDS ORDERED: VITA100093 PO (20:41)
[2022-03-14] MEDS ORDERED: HOME MED LIST COMPLETE! XX SCH (20:45)
[2022-03-14] MEDS ORDERED: traZODone 100 MG TAB PO SCH (21:00)
[2022-03-14] MEDS: NS 1,000 ML IV SCH (21:55)
[2022-03-14 22:02] VITALS: BP 140/65
[2022-03-15] MEDS ORDERED: LevoFLOXacin 500 MG TABLET PO ONE (02:00)
[2022-03-15 04:00] VITALS: BP 118/55
[2022-03-15] MEDS: NS 1,000 ML IV SCH (04:39)
[2022-03-15 06:16] LABS: BASO % 0.7 % (0.0-1.0); EOS # 0.1 10^3/uL (0.0-0.5); EOS % 2.2 % (0.0-3.0); HEMATOCRIT 38.9 % (36.0-47.0); HEMOGLOBIN 12.6 g/dl (12.0-15.5); LYMPH # 1.2 10^3/uL (1.5-5.0); LYMPH % 25.2 % (24.0-44.0); MEAN CORPUSCULAR HEMOGLOBIN 31.6 pg (27.0-33.0); MEAN CORPUSCULAR HGB CONC 32.4 g/dl (32.0-36.5); MEAN CORPUSCULAR VOLUME 97.5 fl (80.0-96.0); MONO # 0.6 10^3/uL (0.0-0.8); MONO % 13.3 % (2.0-8.0); NEUTROPHILS # 2.7 10^3/uL (1.5-8.5); NEUTROPHILS % 58.4 % (36.0-66.0); PLATELET COUNT, AUTOMATED 291 10^3/uL (150-450); RED BLOOD COUNT 3.99 10^6/uL (4.00-5.40); WHITE BLOOD COUNT 4.6 10^3/uL (4.0-10.0)
[2022-03-15 06:40] VITALS: BP 118/59
[2022-03-15 06:41] LABS: BLOOD UREA NITROGEN 15 MG/DL (7-18); CALCIUM LEVEL 8.6 MG/DL (8.8-10.2); CARBON DIOXIDE LEVEL 27 MEQ/L (21-32); CHLORIDE LEVEL 107 MEQ/L (98-107); CREATININE FOR GFR 0.72 MG/DL (0.55-1.30); GLOMERULAR FILTRATION RATE > 60.0 (>32); GLUCOSE, FASTING 61 MG/DL (70-100); MAGNESIUM LEVEL 1.8 MG/DL (1.8-2.4); POTASSIUM SERUM 3.5 MEQ/L (3.5-5.1); SODIUM LEVEL 141 MEQ/L (136-145)
[2022-03-15] MEDS ORDERED: DEXTROSE 50% 50 ML SYRINGE IV STA (06:50)
[2022-03-15] MEDS ORDERED: DEXTROSE 50% 50 ML SYRINGE As Ordered ONE (06:52)
[2022-03-15] MEDS: ONDANSETRON 4MG/2ML VIAL IV SCH ×3 (08:28→20:30)
[2022-03-15] MEDS: ENOXAPARIN 40MG/0.4ML SYRINGE (J1650 PER 10MG) SC SCH (08:28)
[2022-03-15] MEDS: DULoxetine 20 MG CAP (CYMBALTA) PO SCH (08:28)
[2022-03-15] MEDS: D5W/0.9% SODIUM CHLORIDE 1,000 ML IV SCH ×2 (08:33→20:58)
[2022-03-15] MEDS ORDERED: LACTOBACILLUS ACIDOPHILUS CAP (BACID) PO SCH (09:00)
[2022-03-15] MEDS ORDERED: CYANOCOBALAMIN 500 MCG TAB PO SCH (09:00)
[2022-03-15] MEDS ORDERED: ATORVASTATIN 20 MG TAB PO SCH (09:00)
[2022-03-15] MEDS: FIDAXOMICIN 200 MG TAB (DIFICID) PO SCH ×2 (09:00→20:58)
[2022-03-15] MEDS ORDERED: VITAMIN D 1,000 INTERNATIONAL UNITS TABLET PO SCH (09:00)
[2022-03-15] MEDS ORDERED: amLODIPine 5 MG TAB PO SCH (09:00)
[2022-03-15] MEDS: PANTOPRAZOLE 40MG VIAL IV SCH (10:01)
[2022-03-15] MEDS ORDERED: FIDA200TA PO (12:11)
[2022-03-15 14:00] VITALS: BP 105/51
[2022-03-15 18:00] VITALS: BP 121/62
[2022-03-15] MEDS: traZODone 50 MG TAB PO SCH (20:58)
[2022-03-15] MEDS ORDERED: LevoFLOXacin 250 MG TABLET PO SCH (21:00)
[2022-03-15 22:07] VITALS: BP 134/73
[2022-03-16] MEDS: ONDANSETRON 4MG/2ML VIAL IV SCH ×2 (02:30→08:06)
[2022-03-16 04:00] VITALS: BP 98/53
[2022-03-16] MEDS ORDERED: LevoFLOXacin IV 250 MG in IV 1 EA IV SCH (06:00)
[2022-03-16 06:16] LABS: BASO % 0.5 % (0.0-1.0); EOS # 0.2 10^3/uL (0.0-0.5); EOS % 4.8 % (0.0-3.0); HEMATOCRIT 37.6 % (36.0-47.0); HEMOGLOBIN 12.1 g/dl (12.0-15.5); LYMPH # 1.2 10^3/uL (1.5-5.0); LYMPH % 28.1 % (24.0-44.0); MEAN CORPUSCULAR HEMOGLOBIN 31.8 pg (27.0-33.0); MEAN CORPUSCULAR HGB CONC 32.2 g/dl (32.0-36.5); MEAN CORPUSCULAR VOLUME 98.7 fl (80.0-96.0); MONO # 0.7 10^3/uL (0.0-0.8); MONO % 15.6 % (2.0-8.0); NEUTROPHILS # 2.3 10^3/uL (1.5-8.5); NEUTROPHILS % 50.8 % (36.0-66.0); PLATELET COUNT, AUTOMATED 277 10^3/uL (150-450); RED BLOOD COUNT 3.81 10^6/uL (4.00-5.40); WHITE BLOOD COUNT 4.4 10^3/uL (4.0-10.0)
[2022-03-16 06:37] LABS: BLOOD UREA NITROGEN 8 MG/DL (7-18); CALCIUM LEVEL 8.5 MG/DL (8.8-10.2); CARBON DIOXIDE LEVEL 28 MEQ/L (21-32); CHLORIDE LEVEL 112 MEQ/L (98-107); CREATININE FOR GFR 0.77 MG/DL (0.55-1.30); GLOMERULAR FILTRATION RATE > 60.0 (>32); GLUCOSE, FASTING 83 MG/DL (70-100); MAGNESIUM LEVEL 1.9 MG/DL (1.8-2.4); POTASSIUM SERUM 3.1 MEQ/L (3.5-5.1); SODIUM LEVEL 145 MEQ/L (136-145)
[2022-03-16] MEDS ORDERED: POTASSIUM CHLORIDE 10MEQ SR TABLET PO ONE (08:00)
[2022-03-16] MEDS: FIDAXOMICIN 200 MG TAB (DIFICID) PO SCH ×2 (08:02→20:32)
[2022-03-16] MEDS: PANTOPRAZOLE 40MG VIAL IV SCH (08:02)
[2022-03-16] MEDS: DULoxetine 20 MG CAP (CYMBALTA) PO SCH (08:02)
[2022-03-16] MEDS: ENOXAPARIN 40MG/0.4ML SYRINGE (J1650 PER 10MG) SC SCH (08:09)
[2022-03-16 09:00] VITALS: BP 147/61
[2022-03-16 14:00] VITALS: BP 120/58
[2022-03-16 17:32] VITALS: BP 117/53
[2022-03-16] MEDS: traZODone 50 MG TAB PO SCH (20:32)
[2022-03-16 22:00] VITALS: BP 133/62
[2022-03-17 06:00] VITALS: BP 117/56
[2022-03-17 06:20] LABS: BASO % 0.4 % (0.0-1.0); EOS # 0.3 10^3/uL (0.0-0.5); EOS % 4.4 % (0.0-3.0); HEMOGLOBIN 11.3 g/dl (12.0-15.5); LYMPH # 1.6 10^3/uL (1.5-5.0); LYMPH % 28.2 % (24.0-44.0); MEAN CORPUSCULAR HGB CONC 32.3 g/dl (32.0-36.5); MEAN CORPUSCULAR VOLUME 96.2 fl (80.0-96.0); MONO # 0.6 10^3/uL (0.0-0.8); MONO % 10.4 % (2.0-8.0); NEUTROPHILS # 3.2 10^3/uL (1.5-8.5); NEUTROPHILS % 56.2 % (36.0-66.0); PLATELET COUNT, AUTOMATED 272 10^3/uL (150-450); RED BLOOD COUNT 3.64 10^6/uL (4.00-5.40); WHITE BLOOD COUNT 5.7 10^3/uL (4.0-10.0)
[2022-03-17 06:57] LABS: BLOOD UREA NITROGEN 13 MG/DL (7-18); CALCIUM LEVEL 8.8 MG/DL (8.8-10.2); CARBON DIOXIDE LEVEL 26 MEQ/L (21-32); CHLORIDE LEVEL 112 MEQ/L (98-107); CREATININE FOR GFR 0.88 MG/DL (0.55-1.30); GLOMERULAR FILTRATION RATE > 60.0 (>32); GLUCOSE, FASTING 84 MG/DL (70-100); MAGNESIUM LEVEL 1.8 MG/DL (1.8-2.4); POTASSIUM SERUM 3.7 MEQ/L (3.5-5.1); SODIUM LEVEL 145 MEQ/L (136-145)
[2022-03-17] MEDS: DULoxetine 20 MG CAP (CYMBALTA) PO SCH (08:28)
[2022-03-17] MEDS: PANTOPRAZOLE 40MG VIAL IV SCH (08:28)
[2022-03-17] MEDS: FIDAXOMICIN 200 MG TAB (DIFICID) PO SCH (08:28)
[2022-03-17] MEDS: ENOXAPARIN 40MG/0.4ML SYRINGE (J1650 PER 10MG) SC SCH (08:29)
== END 2022-03-17 11:50 | disposition home or self-care (01) | DRG 371 ==
LOC: EDBD 12:58 → M ED 12:58 → M ED INP 12:59 → ENRESERV 21:27 → M 4MAIN 22:02 → OBSVTOIN 03-15 12:12 → M MSPAV 03-16 16:51
PROVIDERS: ADMIT Family Medicine; ATTEND Internal Medicine Nephrology
DX: A04.0 Enteropathogenic Escherichia coli infection (principal); E43 Unspecified severe protein-calorie malnutrition; K56.7 Ileus, unspecified; J96.11 Chronic respiratory failure with hypoxia; Z68.1 Body mass index [BMI] 19.9 or less, adult; A04.72 Enterocolitis due to Clostridium difficile, not specified as recurrent; J44.9 Chronic obstructive pulmonary disease, unspecified; K52.9 Noninfective gastroenteritis and colitis, unspecified; Z99.81 Dependence on supplemental oxygen; I10 Essential (primary) hypertension; M54.9 Dorsalgia, unspecified; Z85.118 Personal history of other malignant neoplasm of bronchus and lung; Z66 Do not resuscitate; E78.5 Hyperlipidemia, unspecified; Z79.899 Other long term (current) drug therapy; Z88.0 Allergy status to penicillin; Z88.1 Allergy status to other antibiotic agents; Z88.6 Allergy status to analgesic agent; Z88.8 Allergy status to other drugs, medicaments and biological substances; Z91.040 Latex allergy status; M81.0 Age-related osteoporosis without current pathological fracture; F32.A Depression, unspecified; Z86.16 Personal history of COVID-19; Z90.49 Acquired absence of other specified parts of digestive tract; Z87.891 Personal history of nicotine dependence; Z92.3 Personal history of irradiation; Z79.891 Long term (current) use of opiate analgesic; E86.0 Dehydration; A08.11 Acute gastroenteropathy due to Norwalk agent

== ENCOUNTER 2023-05-25 01:04 | Inpatient (IN) | payer OTHER, MEDICAID ==
[~2023-05-25] VITALS: Ht 165.1 cm; Wt 47.2 kg
[~2023-05-25 01:04] MED LIST changes: +FIDA200TA PO; +LEVO1TAB40 PO; -LEVO750T13 PO; +POTA-298 PO; -POTA1TAB14 PO; +VITA100093 PO; +VITA500T40 PO
[2023-05-25] MEDS ORDERED: MORPHINE 4 MG/ML 1ML VIAL IV ONE (01:20)
[2023-05-25] MEDS ORDERED: ONDANSETRON 4MG 2ML VIAL IV ONE (01:20)
[2023-05-25 01:42] LABS: BASO % 0.2 % (0.0-1.0); HEMATOCRIT 36.3 % (36.0-47.0); HEMOGLOBIN 12.3 g/dl (12.0-15.5); LYMPH # 0.6 10^3/uL (1.5-5.0); LYMPH % 4.7 % (24.0-44.0); MEAN CORPUSCULAR HEMOGLOBIN 31.4 pg (27.0-33.0); MEAN CORPUSCULAR HGB CONC 33.9 g/dl (32.0-36.5); MEAN CORPUSCULAR VOLUME 92.6 fl (80.0-96.0); MONO # 0.8 10^3/uL (0.0-0.8); MONO % 5.9 % (2.0-8.0); NEUTROPHILS % 88.8 % (36.0-66.0); PLATELET COUNT, AUTOMATED 237 10^3/uL (150-450); RED BLOOD COUNT 3.92 10^6/uL (4.00-5.40); WHITE BLOOD COUNT 13.5 10^3/uL (4.0-10.0)
[2023-05-25 02:08] LABS: BLOOD UREA NITROGEN 19 MG/DL (9-23); CALCIUM LEVEL 8.6 MG/DL (8.3-10.6); CARBON DIOXIDE LEVEL 25 MMOL/L (20-31); CHLORIDE LEVEL 104 MMOL/L (98-107); CK-MB VALUE MASS < 1.0 NG/ML (<3.6); CREATININE FOR GFR 0.72 MG/DL (0.55-1.30); GLOMERULAR FILTRATION RATE > 60.0 (>32); GLUCOSE, FASTING 135 MG/DL (74-106); POTASSIUM SERUM 3.3 MMOL/L (3.5-5.1); SODIUM LEVEL 138 MMOL/L (136-145)
[2023-05-25 02:50] LABS: CPK CREATINE PHOSPHOKINASE 36 U/L (34-145); MB/CK RELATIVE INDEX 2.77 (< OR =4)
[2023-05-25] MEDS ORDERED: ACETAMINOPHEN TAB 650MG DOSE (2X325MG) PO ONE (02:50)
[2023-05-25] MEDS ORDERED: LevoFLOXacin IV 750 MG in IV 1 EA IV ONE (03:00)
[2023-05-25] MEDS ORDERED: methylPREDNISolone 125MG 2ML VIAL IV ONE (03:25)
[2023-05-25] MEDS ORDERED: MORPHINE 2 MG/ML 1ML VIAL IV ONE (05:05)
[2023-05-25 05:40] LABS: RSV AMPLIFICATION NEGATIVE (NEGATIVE)
[2023-05-25] MEDS ORDERED: ACETAMINOPHEN TAB 650MG DOSE (2X325MG) PO PRN (06:10)
[2023-05-25] MEDS ORDERED: oxyCODONE 5MG TAB PO PRN ×2 (06:10)
[2023-05-25] MEDS ORDERED: ASPI-161 PO (06:17)
[2023-05-25] MEDS ORDERED: HOME MED LIST COMPLETE! XX SCH (06:20)
[2023-05-25] MEDS: ONDANSETRON 4MG 2ML VIAL IV PRN ×3 (06:47→17:08)
[2023-05-25] MEDS: KCL 10MEQ/100ML SWI (KRUN) 10 MEQ in IV 1 EA IV SCH ×2 (06:48→08:00)
[2023-05-25] MEDS ORDERED: COLCHICINE 0.6 MG TABLET PO ONE (07:00)
[2023-05-25 07:04] LABS: PROCALCITONIN 0.33 ng/ml
[2023-05-25 07:25] LABS: ERYTHROCYTE SEDIMENTATION RATE 39 mm/hr (0-30)
[2023-05-25] MEDS: amLODIPine 5 MG TAB PO SCH (10:36)
[2023-05-25] MEDS: DULoxetine 20MG CAP (CYMBALTA) PO SCH (10:36)
[2023-05-25] MEDS: HEPARIN SOD (PORCINE) 5000UNITS/ML 1ML VIAL/SYRINGE SC SCH ×2 (10:38→20:13)
[2023-05-25] MEDS: IPRATROPIUM 0.5MG/ALBUTEROL 2.5MG INH SOL UD 3ML (DUONEB) INH SCH ×3 (11:12→20:00)
[2023-05-25 15:30] VITALS: BP 125/60; TEMP 97.5; O2SAT 98
[2023-05-25] MEDS: FAMOTIDINE 20 MG TAB PO SCH (20:10)
[2023-05-25] MEDS ORDERED: traZODone 100 MG TAB PO SCH (21:00)
[2023-05-25 22:00] VITALS: BP 111/52; TEMP 97.9; O2SAT 93
[2023-05-26] MEDS: IPRATROPIUM 0.5MG/ALBUTEROL 2.5MG INH SOL UD 3ML (DUONEB) INH SCH ×4 (01:30→13:12)
[2023-05-26 05:20] VITALS: BP_SYST 123; BP_SYST 99; BP_DIAS 49; BP_DIAS 69; TEMP 97.7; O2SAT 98
[2023-05-26 06:33] LABS: HEMATOCRIT 38.9 % (36.0-47.0); HEMOGLOBIN 12.7 g/dl (12.0-15.5); MEAN CORPUSCULAR HEMOGLOBIN 31.1 pg (27.0-33.0); MEAN CORPUSCULAR HGB CONC 32.6 g/dl (32.0-36.5); MEAN CORPUSCULAR VOLUME 95.1 fl (80.0-96.0); PLATELET COUNT, AUTOMATED 245 10^3/uL (150-450); RED BLOOD COUNT 4.09 10^6/uL (4.00-5.40)
[2023-05-26 06:57] LABS: ERYTHROCYTE SEDIMENTATION RATE 59 mm/hr (0-30)
[2023-05-26 07:11] LABS: BLOOD UREA NITROGEN 18 MG/DL (9-23); CALCIUM LEVEL 8.7 MG/DL (8.3-10.6); CARBON DIOXIDE LEVEL 24 MMOL/L (20-31); CHLORIDE LEVEL 107 MMOL/L (98-107); CREATININE FOR GFR 0.77 MG/DL (0.55-1.30); GLOMERULAR FILTRATION RATE > 60.0 (>32); GLUCOSE, FASTING 113 MG/DL (74-106); POTASSIUM SERUM 3.9 MMOL/L (3.5-5.1); SODIUM LEVEL 141 MMOL/L (136-145)
[2023-05-26] MEDS ORDERED: methylPREDNISolone 40MG 1ML VIAL IV SCH (09:00)
[2023-05-26] MEDS: FAMOTIDINE 20 MG TAB PO SCH (09:15)
[2023-05-26] MEDS: DULoxetine 20MG CAP (CYMBALTA) PO SCH (09:15)
[2023-05-26] MEDS: HEPARIN SOD (PORCINE) 5000UNITS/ML 1ML VIAL/SYRINGE SC SCH (09:15)
[2023-05-26 09:16] VITALS: BP 117/59
[2023-05-26] MEDS: amLODIPine 5 MG TAB PO SCH (09:16)
[2023-05-26] MEDS ORDERED: PRED10TA2 PO (11:29)
[2023-05-26] MEDS ORDERED: AMLO1TAB24 PO (11:29)
[2023-05-26] MEDS ORDERED: TRAZ-257 PO (11:29)
[2023-05-26] MEDS ORDERED: DULO1CAP4 PO (11:29)
[2023-05-26] MEDS ORDERED: ATOR1TAB21 PO (11:29)
[2023-05-26] MEDS ORDERED: ASPI-161 PO (11:29)
[2023-05-27] MEDS ORDERED: LevoFLOXacin 750 MG TABLET PO SCH (06:00)
== END 2023-05-26 14:05 | disposition home or self-care (01) | DRG 558 ==
LOC: M ED 01:04 → M ED INP 06:08 → ENRESERV 15:05 → M MSPAV 15:28
PROVIDERS: ADMIT Internal Medicine; ATTEND Family Medicine
DX: M67.813 Other specified disorders of tendon, right shoulder (principal); C34.90 Malignant neoplasm of unspecified part of unspecified bronchus or lung; R64 Cachexia; M06.9 Rheumatoid arthritis, unspecified; J44.9 Chronic obstructive pulmonary disease, unspecified; M19.90 Unspecified osteoarthritis, unspecified site; R91.8 Other nonspecific abnormal finding of lung field; I10 Essential (primary) hypertension; Z66 Do not resuscitate; Z87.891 Personal history of nicotine dependence; Z79.82 Long term (current) use of aspirin; Z79.899 Other long term (current) drug therapy; Z88.0 Allergy status to penicillin; Z88.1 Allergy status to other antibiotic agents; Z88.6 Allergy status to analgesic agent; Z88.8 Allergy status to other drugs, medicaments and biological substances; Z91.040 Latex allergy status

== ENCOUNTER 2024-02-04 09:57 | Outpatient (RCR) | payer OTHER, MEDICAID ==
[~2024-02-04 09:57] MED LIST changes: +ASPI-615 PO; +CEFD1CAP9; -CEFD300C41
== END 2024-02-10 ==
LOC: M PT 09:57
PROVIDERS: ATTEND Otolaryngology
DX: M26.601 Right temporomandibular joint disorder, unspecified (principal)

== ENCOUNTER 2024-02-19 12:36 | Outpatient (RCR) | payer OTHER, MEDICAID | END 2024-03-11 | LOC: M PT 12:36 | PROVIDERS: ATTEND Otolaryngology | DX: M26.609 Unspecified temporomandibular joint disorder, unspecified side (principal) ==

== ENCOUNTER 2024-03-31 05:08 | Emergency (ER) | payer OTHER, MEDICAID ==
[~2024-03-31] VITALS: Ht 167.6 cm; Wt 53.2 kg
[2024-03-31 05:38] LABS: BASO % 0.2 % (0.0-1.0); EOS % 0.2 % (0.0-3.0); LYMPH # 1.6 10^3/uL (1.5-5.0); LYMPH % 8.3 % (24.0-44.0); MEAN CORPUSCULAR HEMOGLOBIN 31.8 pg (27.0-33.0); MEAN CORPUSCULAR HGB CONC 32.6 g/dl (32.0-36.5); MEAN CORPUSCULAR VOLUME 97.7 fl (80.0-96.0); MONO # 0.9 10^3/uL (0.0-0.8); MONO % 4.4 % (2.0-8.0); NEUTROPHILS # 17.1 10^3/uL (1.5-8.5); NEUTROPHILS % 86.3 % (36.0-66.0); PLATELET COUNT, AUTOMATED 383 10^3/uL (150-450); WHITE BLOOD COUNT 19.8 10^3/uL (4.0-10.0)
[2024-03-31] MEDS: METOCLOPRAMIDE INJ 10MG/2ML VIAL IV ONE (05:44)
[2024-03-31] MEDS: MORPHINE 4 MG/ML 1ML VIAL IV PRN (05:45)
[2024-03-31 05:51] LABS: INR 0.99; PARTIAL THROMBOPLASTIN TIME 23.5 SECONDS (24.8-34.2); PROTHROMBIN TIME 12.8 SECONDS (12.5-14.5)
[2024-03-31 06:02] LABS: LIPASE 39 U/L (12-53)
[2024-03-31 06:04] LABS: ALKALINE PHOSPHATASE 104 U/L (46-116); ALT/SGPT 19 U/L (7.0-40); AST/SGOT 28 U/L (<34); BILIRUBIN,DIRECT 0.2 MG/DL (<0.4); BILIRUBIN,TOTAL 0.6 MG/DL (0.3-1.2); BLOOD UREA NITROGEN 24 MG/DL (9-23); CALCIUM LEVEL 8.8 MG/DL (8.3-10.6); CARBON DIOXIDE LEVEL 24 MMOL/L (20-31); CHLORIDE LEVEL 106 MMOL/L (98-107); CREATININE FOR GFR 0.75 MG/DL (0.55-1.30); GLOMERULAR FILTRATION RATE > 60.0 (>32); GLUCOSE, FASTING 102 MG/DL (74-106); POTASSIUM SERUM 4.4 MMOL/L (3.5-5.1); SODIUM LEVEL 141 MMOL/L (136-145); TOTAL PROTEIN 6.1 G/DL (5.7-8.2)
[2024-03-31 06:05] LABS: CPK CREATINE PHOSPHOKINASE 55 U/L (34-145); MB/CK RELATIVE INDEX 1.81 (< OR =4)
[2024-03-31] MEDS: cefTRIAXone SOD 2 GM in D5W MINI-BAG PLUS 50 ML IV ONE (06:19)
[2024-03-31] MEDS: NS 1,600 ML in IV 1 EA IV ONE (06:19)
[2024-03-31] MEDS: ACETAMINOPHEN *IV* 1,000 MG in IV 1 EA IV ONE (06:22)
[2024-03-31] MEDS ORDERED: ISOVUE-370 76% 100ML VIAL As Ordered ONE (06:29)
[2024-03-31 08:34] LABS: MB/CK RELATIVE INDEX 1.88 (< OR =4)
[2024-03-31 09:33] LABS: ALBUMIN 2.6 G/DL (3.2-5.2); BILIRUBIN,DIRECT 0.5 MG/DL (<0.4); BILIRUBIN,TOTAL 0.7 MG/DL (0.3-1.2); TOTAL PROTEIN 5.4 G/DL (5.7-8.2)
[2024-03-31] MEDS ORDERED: D 1010004 PO (09:33)
[2024-03-31] MEDS ORDERED: PRED10TA2 PO (09:33)
[2024-03-31] MEDS ORDERED: HYDR25OIN TOP (09:33)
[2024-03-31] MEDS ORDERED: POTA-151 PO (09:33)
[2024-03-31] MEDS ORDERED: ASPI81TA26 PO (09:33)
[2024-03-31] MEDS ORDERED: ACET650T15 PO (09:33)
[2024-03-31] MEDS ORDERED: FAMO20TA PO (09:34)
[2024-03-31] MEDS ORDERED: TRAM50TA2 PO (09:34)
[2024-03-31] MEDS ORDERED: HOME MED LIST COMPLETE! XX SCH (09:35)
[2024-03-31] MEDS: NS 1,000 ML IV ONE (10:12)
[2024-03-31] MEDS: ONDANSETRON 4MG 2ML VIAL IV ONE (10:12)
[2024-03-31 10:16] VITALS: BP 122/59; TEMP 96.4; O2SAT 94
== END 2024-03-31 10:21 | disposition short-term general hospital (02) ==
LOC: M ED 05:08 → EDBD 05:08 → M ED 10:21
DX: K55.059 Acute (reversible) ischemia of intestine, part and extent unspecified (principal); C34.90 Malignant neoplasm of unspecified part of unspecified bronchus or lung; J44.9 Chronic obstructive pulmonary disease, unspecified; Z88.6 Allergy status to analgesic agent; Z88.0 Allergy status to penicillin; Z88.1 Allergy status to other antibiotic agents; Z88.8 Allergy status to other drugs, medicaments and biological substances
CPT/HCPCS: 71260; 74177; 80048; 80076; 81001; 82550; 82553; 83605; 83690; 84484; 85025; 85610; 85730; 87040; 93005; 93041; 96361; 96365; 96368; 99285; J0131; J0696; J2405; J2765; Q9967